=== PATIENT | male | born 1970 | race Caucasian/White ===

== ENCOUNTER 2020-08-19 07:02 | Outpatient (NON) | payer OTHER, SELFPAY ==
[2020-08-19 22:01] LABS: SARS-CoV-2 RNA PCR Negative
== END 2020-08-19 07:03 ==
PROVIDERS: PCP Family Medicine; Visit Provider Physician Assistant
DX: Z20.828 Contact with and (suspected) exposure to other viral communicable diseases (principal)
CPT/HCPCS: 87635; C9803; U0003

== ENCOUNTER → 2021-12-16 10:24 | Outpatient (CLI) | payer OTHER, SELFPAY ==
--- NOTE | ~2021-12-16 | US_ITS ---
EXAMINATION: US right upper quadrant DATE: 12/16/2021 10:40 INDICATION: Other problems related to lifestyle. TECHNIQUE: Multiple grayscale and Doppler ultrasound images of the abdomen were obtained. COMPARISON: CT abdomen and pelvis 08/05/2014 FINDINGS: Abdominal aorta is normal in caliber. The visualized portions of the head, body, and tail o f the pancreas are normal. The liver is normal without focal lesion. No liver surface nodularity. The re is normal flow in main portal vein. The gallbladder is normal in size. No gallstones or gallbladde r wall thickening. There is no sonographic Wayne sign. The common duct is normal and measures 4 mm. IMPRESSION: 1. Normal right upper quadrant ultrasound. Reviewed, dictated and finalized at location A.
== END ==
PROVIDERS: PCP Family Medicine; Visit Provider Physician Assistant
DX: Z72.89 Other problems related to lifestyle (principal)
CPT/HCPCS: 76705

== ENCOUNTER 2022-05-19 00:15 | Day surgery (SDC) | payer OTHER, SELFPAY ==
[2022-03-08 15:07] VITALS: BMI 21.5
--- NOTE | 2022-03-23 13:12 | PM.HPGS ---
History of Present Illness History of Present Illness Consent: Risks, benefits, and alternatives have been discussed and questions answered. Patient agrees to proceed with procedure. Chief complaint: hx of rectal polyps Narrative: Lavell Olmstead is a 51 year old male Who was referred for colon cancer screening. About 6 years ago he had a tubular adenoma removed from his rectum. Review of Systems Review of Systems: All systems reviewed & are unremarkable except as noted in HPI and below PMFSH Past Medical History Medical History Low vitamin D level No problem, feared complaint unfounded Family History Family History Father Hypertension Asthma Patient's father is in good health Mother Patient's mother is in good health Sibling Patient's sister is in good health Patient's brother is in good health Social History Social History Smoking packs per day: 1 Smoking cigarettes per day: 20.0 Years smoked: 4 Smoking pack-years: 4.00 Smoking status: Former smoker Tobacco type: cigarettes Second hand tobacco smoke exposure: No Smoking end date: 09/03/03 Alcohol intake: current Drinks per week: 28 Substance use: never Living arrangements: with family Gender identity (if verbalized by the patient): Male Meds Home Medications and Allergies Home Medications Medication Instructions Recorded Confirmed Type latanoprostene bunod 0.024 % eye 09/18/19 11/22/21 History drops (Vyzulta) buspirone 7.5 mg tablet 7.5 mg PO TID #270 tabs 09/06/21 03/08/22 Rx finasteride 1 mg tablet See Rx Instructions .Route 09/14/21 03/08/22 Rx .COMPLEX #90 tabs lisinopril 40 mg tablet See Rx Instructions .Route 09/14/21 03/08/22 Rx .COMPLEX #90 tabs bupropion HCl 150 mg tablet,12 hr 150 mg PO BID #180 tabs 10/04/21 03/08/22 Rx sustained-release (Wellbutrin SR) zolpidem 12.5 mg tablet,extended 12.5 mg PO QHS PRN insomnia #90 12/06/21 03/08/22 Rx release,multiphase tabs amlodipine 5 mg tablet 5 mg PO DAILY #90 tabs 12/07/21 03/08/22 Rx albuterol sulfate 90 mcg/actuation 1 inh inhalation Q4H PRN shortness 12/27/21 03/08/22 Rx aerosol inhaler of breath or wheezing #8.5 grams sodium sul 1.479 gram-potas ch See Rx Instructions PO PER PKG DIR 01/24/22 03/08/22 Rx 0.188 gram-magnes sul 0.225 gram #24 tabs tablet (Sutab) Allergies Allergy/AdvReac Type Severity Reaction Status Date / Time No Known Allergies Allergy Unverified 11/22/21 10:33 Exam Resp: Auscultation: clear to auscultation bilaterally Cardio: Rate: regular rate Rhythm: regular rhythm GI: GI Palp: Yes Soft to palpation and No Tenderness to palpation present (GI) Assessment and Plan Assessment and plan (1) Colon cancer screening: Code(s): Z12.11 - Encounter for screening for malignant neoplasm of colon Status: Acute Assessment and Plan: Colonoscopy with possible biopsy or polypectomy or cautery or injection of substances.
[2022-05-09 12:44] VITALS: BMI 22.7
--- NOTE | 2022-05-18 09:41 | WPDANESEPPF ---
Anes - Initial Pre Proc Eval Procedure: Operation Date: 05/19/22 08:15 Proposed Procedures p Screening Colonoscopy - Uceh Henderson MD Date/Time: 05/18/22 09:41 Surgeon: Uche Henderson MD Pre Op Diagnosis: hx of rectal polyps Patient Data Age: 51 Gender: M Height: 1.8 m Weight: 74 kg Allergies Allergy/AdvReac Type Severity Reaction Status Date / Time No Known Allergies Allergy Verified 05/19/22 06:59 Home Medications Medication Instructions Recorded Confirmed Type latanoprostene bunod 0.024 % eye 1 drp EACH EYE DAILY 09/18/19 05/09/22 History drops (Vyzulta) finasteride 1 mg tablet See Rx Instructions .Route 09/14/21 03/08/22 Rx .COMPLEX #90 tabs lisinopril 40 mg tablet See Rx Instructions .Route 09/14/21 03/08/22 Rx .COMPLEX #90 tabs zolpidem 12.5 mg tablet,extended 12.5 mg PO QHS PRN insomnia #90 12/06/21 03/08/22 Rx release,multiphase tabs amlodipine 5 mg tablet 5 mg PO DAILY #90 tabs 12/07/21 03/08/22 Rx sodium sul 1.479 gram-potas ch See Rx Instructions PO PER PKG DIR 01/24/22 03/08/22 Rx 0.188 gram-magnes sul 0.225 gram #24 tabs tablet (Sutab) albuterol sulfate 90 mcg/actuation 1 inh inhalation Q4H PRN shortness 03/23/22 05/09/22 Rx aerosol inhaler of breath or wheezing #8.5 grams buspirone 7.5 mg tablet 7.5 mg PO TID #270 tabs 05/09/22 05/09/22 Rx Patient hx anesthesia problems: none Family hx anesthesia problems: none Results Review: All pre-operative results and documents have been reviewed as part of the pre-operative evaluation. [facility] Past Medical History Medical History (Updated 05/18/22 @ 09:42 by Andry Brooks DO) Autoimmune thyroiditis Essential hypertension Gastroesophageal reflux disease Glaucoma Low vitamin D level No problem, feared complaint unfounded Pure hypercholesterolemia Family History Family History Father Hypertension Asthma Patient's father is in good health Mother Patient's mother is in good health Sibling Patient's sister is in good health Patient's brother is in good health Social History Social History Smoking packs per day: 1 Smoking cigarettes per day: 20.0 Years smoked: 4 Smoking pack-years: 4.00 Smoking status: Former smoker Tobacco type: cigarettes Second hand tobacco smoke exposure: No Smoking end date: 09/03/03 Alcohol intake: current Drinks per week: 28 Substance use: never Substance use type: does not use Living arrangements: with family Gender identity (if verbalized by the patient): Male Spiritual care concerns: No Anes - Eval Final PreProcedure Day of Procedure 05/18/22 09:41 Patient weight: normal Heart: regular rate and rhythm Lungs: clear to auscultation and normal air movement Airway: Mallampati scale class II Neurological: alert and oriented Last oral intake: >/= 8 hours ASA classification: II Emergent: no Anesthetic plan: proceed Anesthesia type and monitoring: general GIVS and standard monitoring Results Review: All pre-operative results and documents have been reviewed as part of the pre-operative evaluation. Informed Consent: The patient's anesthetic plan and its attendant risks and benefits were discussed with the patient/family/POA. Questions were solicited and answers provided to the satisfaction of the patient/family/POA.
--- NOTE | 2022-05-19 06:49 | PM.HPGS ---
History of Present Illness History of Present Illness Consent: Risks, benefits, and alternatives have been discussed and questions answered. Patient agrees to proceed with procedure. Chief complaint: hx of rectal polyps Narrative: Lavell Olmstead is a 51 year old male Who is referred for colon cancer screening. He had a rectal polyp removed about 6 years ago. Review of Systems Review of Systems: All systems reviewed & are unremarkable except as noted in HPI and below PMFSH Past Medical History Medical History Autoimmune thyroiditis Essential hypertension Gastroesophageal reflux disease Glaucoma Low vitamin D level No problem, feared complaint unfounded Pure hypercholesterolemia Family History Family History Father Hypertension Asthma Patient's father is in good health Mother Patient's mother is in good health Sibling Patient's sister is in good health Patient's brother is in good health Social History Social History Smoking packs per day: 1 Smoking cigarettes per day: 20.0 Years smoked: 4 Smoking pack-years: 4.00 Smoking status: Former smoker Tobacco type: cigarettes Second hand tobacco smoke exposure: No Smoking end date: 09/03/03 Alcohol intake: current Drinks per week: 28 Substance use: never Substance use type: does not use Living arrangements: with family Gender identity (if verbalized by the patient): Male Spiritual care concerns: No Meds Home Medications and Allergies Home Medications Medication Instructions Recorded Confirmed Type latanoprostene bunod 0.024 % eye 1 drp EACH EYE DAILY 09/18/19 05/09/22 History drops (Vyzulta) finasteride 1 mg tablet See Rx Instructions .Route 09/14/21 03/08/22 Rx .COMPLEX #90 tabs lisinopril 40 mg tablet See Rx Instructions .Route 09/14/21 03/08/22 Rx .COMPLEX #90 tabs zolpidem 12.5 mg tablet,extended 12.5 mg PO QHS PRN insomnia #90 12/06/21 03/08/22 Rx release,multiphase tabs amlodipine 5 mg tablet 5 mg PO DAILY #90 tabs 12/07/21 03/08/22 Rx sodium sul 1.479 gram-potas ch See Rx Instructions PO PER PKG DIR 01/24/22 03/08/22 Rx 0.188 gram-magnes sul 0.225 gram #24 tabs tablet (Sutab) albuterol sulfate 90 mcg/actuation 1 inh inhalation Q4H PRN shortness 03/23/22 05/09/22 Rx aerosol inhaler of breath or wheezing #8.5 grams buspirone 7.5 mg tablet 7.5 mg PO TID #270 tabs 05/09/22 05/09/22 Rx Allergies Allergy/AdvReac Type Severity Reaction Status Date / Time No Known Allergies Allergy Verified 05/19/22 06:59 Exam Resp: Auscultation: clear to auscultation bilaterally Cardio: Rate: regular rate Rhythm: regular rhythm GI: GI Palp: Yes Soft to palpation and No Tenderness to palpation present (GI) Assessment and Plan Assessment and plan (1) Colon cancer screening: Code(s): Z12.11 - Encounter for screening for malignant neoplasm of colon Status: Acute Assessment and Plan: Colonoscopy with possible biopsy or polypectomy or cautery or injection of substances.
[2022-05-19 07:00] VITALS: BP 164/98; PULSE 89; RESP 18; TEMP 36.1; O2SAT 100
[2022-05-19] MEDS: LACTATED RINGERS 1,000 ML 150 ML IV CONT (07:10)
[2022-05-19 08:24] VITALS: BP 125/85; PULSE 63; RESP 22; O2SAT 100
[2022-05-19 08:34] VITALS: BP 125/93; PULSE 58; RESP 18; O2SAT 100
[2022-05-19 08:44] VITALS: BP 144/99; PULSE 58; RESP 16; O2SAT 100
== END 2022-05-19 08:54 | disposition home or self-care (01) ==
PROVIDERS: PCP Family Medicine; Visit Provider Internal Medicine Gastroenterology
PROC: 0DJD8ZZ Inspection of Lower Intestinal Tract, Via Natural or Artificial Opening Endoscopic (ICD-10-PCS; CPT 45378; principal; 2022-05-19 08:15)
DX: Z12.11 Encounter for screening for malignant neoplasm of colon (principal); Z86.010 Personal history of colon polyps; I10 Essential (primary) hypertension; E78.00 Pure hypercholesterolemia, unspecified; E55.9 Vitamin D deficiency, unspecified; E06.3 Autoimmune thyroiditis; H40.9 Unspecified glaucoma; K21.9 Gastro-esophageal reflux disease without esophagitis; Z79.51 Long term (current) use of inhaled steroids; Z87.891 Personal history of nicotine dependence
CPT/HCPCS: 45378; J2704; J7120